=== PATIENT | female | born 2000 | race Hispanic/Latino ===

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

== ENCOUNTER 2020-08-07 05:08 | Emergency (ER) | payer OTHER, SELFPAY | END 2020-08-07 05:23 | LOC: ERS 05:08 | DX: F19.129 Other psychoactive substance abuse with intoxication, unspecified (principal) | CPT/HCPCS: 99283 ==